=== PATIENT | female | born 1980 | race Caucasian/White ===

== ENCOUNTER 2018-05-30 11:16 | Emergency (ER) | payer BC, OTHER ==
[2018-05-30 12:08] LABS: ANION GAP 16.6; CHLORIDE,CL 102 mmol/L (101-111); SODIUM,NA 138 mmol/L (135-145)
--- NOTE | 2018-05-30 13:01 | US ---
Clinical history: 38-year-old female with stabbing" right upper quadrant pain and abnormally elevated serum amylase/lipase. Interpretation: Abnormal. Multiple discrete mobile dependent intraluminal echogenic "shadowing" small gallstones, RUQ. Gallbladder normal size and anatomic configuration with uniformly thin wall. No pericystic fluid. No mucosal wall polyps. Homogeneous normal sonodensity all the liver without sign discrete intrahepatic cystic or solid mass lesion. CBD 4.1 mm. Fractional visualization of the pancreas and recommend CT exam abdomen (abnormal enzymes). No ascites. CONCLUSION: Cholelithiasis. No abnormal ductal dilatation. Incomplete visualization pancreas (recommend CT).
[2018-05-30] MEDS ORDERED: Iopamidol 612 MG/ML 100 ML Bottle IVPUSH ONE ×2 (13:21→14:22)
--- NOTE | 2018-05-30 14:55 | CT ---
Clinical history: 38-year-old 278 pound female with "stabbing" RUQ pain. ("Cholelithiasis" documented at ultrasound but pancreas not adequately demonstrated or visualized) in this patient with abnormally elevated serum amylase (643) and lipase (>400). Scan technique: Volume acquisition of data from the abdomen and pelvis obtained without (IVC) and during intravenous infusion 100 cc nonionic Isovue contrast (3 cc/s via injector) while patient was lying supine on the Siemens multi slice CT scanner [place], [place]. All data archived in the PAC system for storage, reformatting axial/sagittal/coronal planes and study. Interpretation: Abnormal. 1.* Distended gallbladder with dependent noncalcified intraluminal gallstones (confirmed at ultrasound) and abnormally distended extrahepatic common bile duct (14 mm diameter) down to the antrum of moderate. 2. No current signs of pancreatic edema, major pancreatic duct dilatation, discrete intrahepatic stone (stone documented on ultrasound are not calcified) or cystic/solid pancreatic mass lesion. No peripancreatic inflammation ("dirty" fat) or phlegmon. 3. Liver normal size, anatomic configuration and homogeneous density. Normal stomach, spleen, adrenal glands and kidneys. 4. Normal caliber abdominal aorta. Lumbar spine unremarkable. Lung bases clear. 5. No sign of abdominal or pelvic mass lesion (normal midline uterus), inflammatory "dirty" peritoneal fat, signs of mechanical bowel obstruction, ascites or free intraperitoneal air (diverticula sigmoid colon). CONCLUSION: Cholelithiasis. *Abnormal dilatation common bile duct (14 mm) i.e. presumed stone impacted ampulla of Vater.
[2018-05-30] MEDS ORDERED: HYDROmorphone 1 MG/ML Syringe IVPUSH ONE (15:14)
[2018-05-30 16:34] VITALS: BP 108/67
--- NOTE | 2018-06-01 17:12 | EDM.PDOC ---
ED HPI GENERAL MEDICAL PROBLEM - General Chief Complaint: Abdominal Pain Stated Complaint: ABD PAINS [id number] Time Seen by Provider: 05/30/18 13:12 Source of Information: Reports: Patient, RN, RN Notes Reviewed History Limitations: Reports: No Limitations - History of Present Illness INITIAL COMMENTS - FREE TEXT/NARRATIVE: Patient presents to ER with complaint of pain in right upper quadrant. The pain is sharp which began on Thursday night. She has a history of gallstones. She had a baby 4 months ago. She has had nausea, decreased appetite and chills. No vomiting, fever or diarrhea. Onset Date: 05/28/18 Duration: Getting Worse Location: Reports: Abdomen Quality: Reports: Ache Severity: Moderate Improves with: Reports: None Worsens with: Reports: None Associated Symptoms: Reports: No Other Symptoms - Related Data Allergies Allergy/AdvReac Type Severity Reaction Status Date / Time No Known Allergies Allergy Verified 02/01/18 01:02 Home Meds: Home Meds Vit #108/Iron/FA [ One Tablet] 1 each PO DAILY 01/01/18 [ History] Acetaminophen [Tylenol] 650 mg PO Q4H PRN tablet 02/04/18 [Rx] Ibuprofen [Motrin] 800 mg PO Q8H PRN tablet 02/04/18 [Rx] Past Medical History - Past Health History Medical/Surgical History: Denies Medical/Surgical History HEENT History: Reports: None Cardiovascular History: Reports: None Respiratory History: Reports: None Gastrointestinal History: Reports: None Genitourinary History: Reports: None 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: , Spontaneous Musculoskeletal History: Reports: None Neurological History: Reports: None Psychiatric History: Reports: None Endocrine/Metabolic History: Reports: Obesity/BMI 30+ Hematologic History: Reports: Anemia Immunologic History: Reports: None Oncologic (Cancer) History: Reports: None Dermatologic History: Reports: None - Infectious Disease History Infectious Disease History: Reports: None - Past Surgical History Head Surgeries/Procedures: Reports: None Female Surgical History: Reports: D&C Social & Family History - Family History Family Medical History: Noncontributory - Tobacco Use Smoking Status *Q: Never Smoker - Caffeine Use Caffeine Use: Reports: None - Recreational Drug Use Recreational Drug Use: No ED ROS GENERAL - Review of Systems Review Of Systems: ROS reveals no pertinent complaints other than HPI. ED EXAM, GI/ABD - Physical Exam Exam: See Below Exam Limited By: No Limitations General Appearance: Alert, WD/WN, No Apparent Distress Eyes: Bilateral: Normal Appearance Ears: Normal External Exam, Normal Canal, Hearing Grossly Normal, Normal TMs Nose: Normal Inspection, Normal Mucosa, No Blood Throat/Mouth: Normal Inspection, Normal Lips, Normal Teeth, Normal Gums, Normal Oropharynx, Normal Voice, No Airway Compromise Head: Atraumatic, Normocephalic Neck: Normal Inspection, Supple, Non-Tender, Full Range of Motion Respiratory/Chest: No Respiratory Distress, Lungs Clear, Normal Breath Sounds, No Accessory Muscle Use, Chest Non-Tender Cardiovascular: Normal Peripheral Pulses, Regular Rate, Rhythm, No Edema, No Gallop, No JVD, No Murmur, No Rub GI/Abdominal Exam: Tender (right upper quadrant) (Female) Exam: Deferred Rectal (Female) Exam: Deferred Back Exam: Normal Inspection, Full Range of Motion, NT Extremities: Normal Inspection, Normal Range of Motion, Non-Tender, Normal Capillary Refill, No Pedal Edema Neurological: Alert, Oriented, CN II-XII Intact, Normal Cognition, Normal Gait, Normal Reflexes, No Motor/Sensory Deficits Psychiatric: Normal Affect, Normal Mood Skin Exam: Warm, Dry, Intact, Normal Color, No Rash Lymphatic: No Adenopathy Course - Vital Signs Last Recorded V/S: Last Vital Signs Temp 97.2 F 05/30/18 16:33 Pulse 87 05/30/18 16:33 Resp 18 05/30/18 16:33 BP 108/67 05/30/18 16:33 Pulse Ox 100 05/30/18 16:33 - Orders/Labs/Meds Labs: Laboratory Tests 05/30/18 05/30/18 05/30/18 Range/Units 11:28 11:28 11:35 WBC (5.0-10.0) 10^3/uL RBC (4.2-5.4) 10^6/uL Hgb (12.0-16.0) g/dL Hct (37.0-47.0) % MCV (80-100) fL MCH (27.0-34.0) pg MCHC (33.0-35.0) g/dL Plt Count (150-450) 10^3/uL Neut % (Auto) (42.2-75.2) % Lymph % (Auto) (20.5-50.1) % [place] % (Auto) (2-8) % Eos % (Auto) (1.0-3.0) % Baso % (Auto) (0.0-1.0) % Sodium 138 (135-145) mmol/L Potassium 3.6 (3.6-5.0) mmol/L Chloride 102 (101-111) mmol/L Carbon Dioxide 23.0 (21.0-31.0) mmol/L Anion Gap 16.6 BUN 13 (7-18) mg/dL Creatinine 0.7 (0.6-1.3) mg/dL Est Cr Clr Drug Dosing 103.01 mL/min Estimated GFR (MDRD) > 60 BUN/Creatinine Ratio 18.57 Glucose 83 (74-105) mg/dL Calcium 9.0 (8.4-10.2) mg/dl Total Bilirubin 2.6 H (0.2-1.0) mg/dL AST 376 H (10-42) IU/L ALT 277 H (10-60) IU/L Alkaline Phosphatase 137 H (42-121) IU/L Total Protein 8.1 (6.7-8.2) g/dl Albumin 4.2 (3.2-5.5) g/dl Globulin 3.9 Albumin/Globulin Ratio 1.08 Amylase 643 H (28-100) U/L Lipase > 400 H (22-51) U/L Urine Color Dark yellow (YELLOW) Urine Appearance Clear (CLEAR) Urine pH 5.5 (5.0-9.0) Ur Specific [place] 1.025 (1.005-1.030) Urine Protein 30 H (NEGATIVE) Urine Glucose (UA) Negative (NEGATIVE) Urine Ketones 40 H (NEGATIVE) Urine Occult Blood Negative (NEGATIVE) Urine Nitrite Negative (NEGATIVE) Urine Bilirubin Small H (NEGATIVE) Urine Urobilinogen 0.2 (0.2-1.0) mg/dL Ur Leukocyte Esterase Negative (NEGATIVE) Urine RBC 0-5 /HPF Urine WBC 0-5 (0-5/HPF) /HPF Ur Epithelial Cells Few /HPF Urine Bacteria Moderate H (0-FEW/HPF) /HPF Urine HCG, Qual Negative 05/30/18 Range/Units 11:35 WBC 7.3 (5.0-10.0) 10^3/uL RBC 4.97 (4.2-5.4) 10^6/uL Hgb 13.6 D (12.0-16.0) g/dL Hct 42.4 (37.0-47.0) % MCV 85.3 (80-100) fL MCH 27.4 (27.0-34.0) pg MCHC 32.1 L (33.0-35.0) g/dL Plt Count 347 D (150-450) 10^3/uL Neut % (Auto) 69.9 (42.2-75.2) % Lymph % (Auto) 21.5 (20.5-50.1) % [place] % (Auto) 5.7 (2-8) % Eos % (Auto) 2.6 (1.0-3.0) % Baso % (Auto) 0.3 (0.0-1.0) % Sodium (135-145) mmol/L Potassium (3.6-5.0) mmol/L Chloride (101-111) mmol/L Carbon Dioxide (21.0-31.0) mmol/L Anion Gap BUN (7-18) mg/dL Creatinine (0.6-1.3) mg/dL Est Cr Clr Drug Dosing mL/min Estimated GFR (MDRD) BUN/Creatinine Ratio Glucose (74-105) mg/dL Calcium (8.4-10.2) mg/dl Total Bilirubin (0.2-1.0) mg/dL AST (10-42) IU/L ALT (10-60) IU/L Alkaline Phosphatase (42-121) IU/L Total Protein (6.7-8.2) g/dl Albumin (3.2-5.5) g/dl Globulin Albumin/Globulin Ratio Amylase (28-100) U/L Lipase (22-51) U/L Urine Color (YELLOW) Urine Appearance (CLEAR) Urine pH (5.0-9.0) Ur Specific [place] (1.005-1.030) Urine Protein (NEGATIVE) Urine Glucose (UA) (NEGATIVE) Urine Ketones (NEGATIVE) Urine Occult Blood (NEGATIVE) Urine Nitrite (NEGATIVE) Urine Bilirubin (NEGATIVE) Urine Urobilinogen (0.2-1.0) mg/dL Ur Leukocyte Esterase (NEGATIVE) Urine RBC /HPF Urine WBC (0-5/HPF) /HPF Ur Epithelial Cells /HPF Urine Bacteria (0-FEW/HPF) /HPF Urine HCG, Qual Meds: Medications Discontinued Medications Generic Name Dose Route Start Last Admin Trade Name Brannon PRN Reason Stop Dose Admin Hydromorphone HCl 1 mg 05/30/18 15:14 05/30/18 15:21 Dilaudid IVPUSH 05/30/18 15:15 1 mg ONETIME ONE Administration Iopamidol 100 ml 05/30/18 13:21 05/30/18 13:29 Isovue-300 (61%) IVPUSH 05/30/18 13:22 Not Given ONETIME ONE Iopamidol 100 ml 05/30/18 14:22 05/30/18 14:37 Isovue-300 (61%) IVPUSH 05/30/18 14:23 75 ml ONETIME ONE Administration - Radiology Interpretation Free Text/Narrative:: CT Abdomen/Pelvis with contrast: Cholelithiasis *Abnormal dilatation common bile duct (14mm) i.e. presumed stone impacted ampulla of Vater Abdomen US: Cholelithiasis. No abnormal ductal dilatation. Incomplete visualization pancreas (recommend CT) See rad report - Re-Assessments/Exams Free Text/Narrative Re-Assessment/Exam: 06/02/18 07:15 Discussed patient case with Dr. Wright at [facility] who states they could accept the patient but she may need to be transferred from there as well, due to no capability of ERCP. Then discussed the patient with Dr. Fulton at [facility] who agreed to accept the patient. Due to weather, hospitalists would not accept the patient if she came by private vehicle, but if she came by ambulance they would accept her. Patient agreed to be transferred to [place] per ambulance. Dr. Levin agreed to accept the patient at this time. Departure - Departure Time of Disposition: 17:16 Disposition: DC/Tfer to Acute Hospital 02 Condition: Fair Clinical Impression: Cholelithiasis Qualifiers: Cholelithiasis location: bile duct Cholecystitis presence: without cholecystitis Biliary obstruction: with biliary obstruction Qualified Code(s): K80.51 - Calculus of bile duct without cholangitis or cholecystitis with obstruction - Discharge Information *PRESCRIPTION DRUG MONITORING PROGRAM REVIEWED*: No *COPY OF PRESCRIPTION DRUG MONITORING REPORT IN PATIENT SHILO: No Referrals: Maria Luz Shirley MD [Primary Care Provider] - Forms: ED Department Discharge, Interfacility Transfer [facility]
== END 2018-05-30 17:14 ==
LOC: DL.ED 11:16
DX: K80.51 Calculus of bile duct without cholangitis or cholecystitis with obstruction (principal)
CPT/HCPCS: 36415; 74178; 76705; 80053; 81001; 81025; 82150; 83690; 85025; 96374; 99285; J1170; Q9967

== ENCOUNTER 2019-03-18 17:59 | Emergency (ER) | payer BC ==
[2019-03-18 18:09] VITALS: BP 126/93; PULSE 119
[2019-03-18 18:53] LABS: ANION GAP 11.9; CHLORIDE,CL 105 mmol/L (101-111); SODIUM,NA 137 mmol/L (135-145)
--- NOTE | 2019-03-18 18:53 | EDM.PDOC ---
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 the today developed left chest area pain just under the skin of her left breast that comes-goes. denies hurting when pushed on it or takes deep breath. no rash. Left Upper Chest Pain Score (Numeric/FACES): 3 - Related Data Allergies Allergy/AdvReac Type Severity Reaction Status Date / Time No Known Allergies Allergy Verified 03/18/19 18:09 Home Meds: Home Meds Mv-Mn/Iron/FA/Herbal/Digestive [ One Tablet] 1 each PO DAILY 01/01/18 [ History] Omeprazole 40 mg PO DAILY 03/18/19 [History] buPROPion HCl [Bupropion Xl] 150 mg PO DAILY 03/18/19 [History] Past Medical History - Past Health History Medical/Surgical History: Denies Medical/Surgical History HEENT History: Reports: None Cardiovascular History: Reports: None Respiratory History: Reports: None Gastrointestinal History: Reports: None Genitourinary History: Reports: None 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: , Spontaneous Musculoskeletal History: Reports: Fracture Neurological History: Reports: None Psychiatric History: Reports: None Endocrine/Metabolic History: Reports: Obesity/BMI 30+ Hematologic History: Reports: Anemia Immunologic History: Reports: None Oncologic (Cancer) History: Reports: None Dermatologic History: Reports: None - Infectious Disease History Infectious Disease History: Reports: None - Past Surgical History Head Surgeries/Procedures: Reports: None GI Surgical History: Reports: Cholecystectomy Female Surgical History: Reports: D&C Musculoskeletal Surgical History: Reports: Other (See Below) Other Musculoskeletal Surgeries/Procedures:: right foot surgery (open reduction) Social & Family History - Family History Family Medical History: Noncontributory - Tobacco Use Smoking Status *Q: Former Smoker Used Tobacco, but Quit: Yes Month/Year Tobacco Last Used: 2018 - Caffeine Use Caffeine Use: Reports: None - Recreational Drug Use Recreational Drug Use: No ED ROS GENERAL - Review of Systems Review Of Systems: Comprehensive ROS is negative, except as noted in HPI. ED EXAM, GENERAL - Physical Exam Exam: See Below Exam Limited By: No Limitations General Appearance: Alert, WD/WN, Mild Distress, Other (upset) Ears: Hearing Grossly Normal Throat/Mouth: Normal Voice, No Airway Compromise Head: Atraumatic Neck: Non-Tender, Full Range of Motion Respiratory/Chest: No Respiratory Distress, Lungs Clear, Normal Breath Sounds, Chest Non-Tender Cardiovascular: Regular Rate, Rhythm GI/Abdominal: Soft, Non-Tender Neurological: Alert, Oriented, Normal Cognition, Normal Gait, No Motor/Sensory Deficits Psychiatric: Normal Affect, Normal Mood Skin Exam: Warm, Dry, Normal Color, Other. No: Zoster-Like Rash Lymphatic: No Adenopathy Course - Vital Signs Last Recorded V/S: Last Vital Signs Temp 36.3 C 03/18/19 18:05 Pulse 119 H 03/18/19 18:05 Resp 18 03/18/19 18:05 BP 126/93 H 03/18/19 18:05 Pulse Ox 94 L 03/18/19 18:05 - Orders/Labs/Meds Orders: Active Orders 24 hr Category Date Time Status EKG Documentation Completion [RC] URGENT Care 03/18/19 18:18 Active Labs: Laboratory Tests 03/18/19 03/18/19 03/18/19 Range/Units 18:25 18:25 18:25 WBC 7.6 (5.0-10.0) 10^3/uL RBC 4.44 (4.2-5.4) 10^6/uL Hgb 12.1 D (12.0-16.0) g/dL Hct 37.3 (37.0-47.0) % MCV 84.0 (80-100) fL MCH 27.3 (27.0-34.0) pg MCHC 32.4 L (33.0-35.0) g/dL Plt Count 312 (150-450) 10^3/uL Neut % (Auto) 64.3 (42.2-75.2) % Lymph % (Auto) 26.5 (20.5-50.1) % [place] % (Auto) 4.6 (2-8) % Eos % (Auto) 4.2 H (1.0-3.0) % Baso % (Auto) 0.4 (0.0-1.0) % D-Dimer, Quantitative 635 H (0-400) ng/mL Sodium 137 (135-145) mmol/L Potassium 3.9 (3.6-5.0) mmol/L Chloride 105 (101-111) mmol/L Carbon Dioxide 24.0 (21.0-31.0) mmol/L Anion Gap 11.9 BUN 17 (7-18) mg/dL Creatinine 0.8 (0.6-1.3) mg/dL Est Cr Clr Drug Dosing 90.13 mL/min Estimated GFR (MDRD) > 60 BUN/Creatinine Ratio 21.25 Glucose 102 (74-105) mg/dL Calcium 8.7 (8.4-10.2) mg/dl Total Bilirubin 0.6 (0.2-1.0) mg/dL AST 28 (10-42) IU/L ALT 35 (10-60) IU/L Alkaline Phosphatase 56 (42-121) IU/L Troponin I < 0.02 (0.00-0.02) ng/ml B-Natriuretic Peptide (0-100) pg/ml Total Protein 7.0 (6.7-8.2) g/dl Albumin 3.9 (3.2-5.5) g/dl Globulin 3.1 Albumin/Globulin Ratio 1.26 12/13/19 Range/Units 18:25 WBC (5.0-10.0) 10^3/uL RBC (4.2-5.4) 10^6/uL Hgb (12.0-16.0) g/dL Hct (37.0-47.0) % MCV (80-100) fL MCH (27.0-34.0) pg MCHC (33.0-35.0) g/dL Plt Count (150-450) 10^3/uL Neut % (Auto) (42.2-75.2) % Lymph % (Auto) (20.5-50.1) % [place] % (Auto) (2-8) % Eos % (Auto) (1.0-3.0) % Baso % (Auto) (0.0-1.0) % D-Dimer, Quantitative (0-400) ng/mL Sodium (135-145) mmol/L Potassium (3.6-5.0) mmol/L Chloride (101-111) mmol/L Carbon Dioxide (21.0-31.0) mmol/L Anion Gap BUN (7-18) mg/dL Creatinine (0.6-1.3) mg/dL Est Cr Clr Drug Dosing mL/min Estimated GFR (MDRD) BUN/Creatinine Ratio Glucose (74-105) mg/dL Calcium (8.4-10.2) mg/dl Total Bilirubin (0.2-1.0) mg/dL AST (10-42) IU/L ALT (10-60) IU/L Alkaline Phosphatase (42-121) IU/L Troponin I (0.00-0.02) ng/ml B-Natriuretic Peptide 742 H (0-100) pg/ml Total Protein (6.7-8.2) g/dl Albumin (3.2-5.5) g/dl Globulin Albumin/Globulin Ratio Meds: Medications Discontinued Medications Generic Name Dose Route Start Last Admin Trade Name Freq PRN Reason Stop Dose Admin Iopamidol 100 ml 03/18/19 19:11 03/18/19 19:46 Isovue-370 (76%) IVPUSH 03/18/19 19:12 83 ml ONETIME ONE Administration Lorazepam 1 mg 03/18/19 20:59 Ativan IVPUSH 03/18/19 21:00 ONETIME ONE - Re-Assessments/Exams Free Text/Narrative Re-Assessment/Exam: 03/18/19 21:05 results discussed with pt and case discussed with Dr Roth who kindly accepted pt. Departure - Departure Time of Disposition: 21:06 Disposition: DC/Tfer to Acute Hospital 02 Reason for Transfer *Q: Other Condition: Good Clinical Impression: Pulmonary edema cardiac cause Cardiomyopathy Qualifiers: Cardiomyopathy type: unspecified Qualified Code(s): I42.9 - Cardiomyopathy, unspecified Forms: Interfacility Transfer [facility] Sepsis Event Note - Evaluation Sepsis Screening Result: No Definite Risk - Focused Exam Vital Signs: Vital Signs Temp Pulse Resp BP Pulse Ox 03/18/19 18:05 36.3 C 119 H 18 126/93 H 94 L Date Exam was Performed: 03/18/19 Time Exam was Performed: 21:05
[2019-03-18] MEDS ORDERED: Iopamidol 755 Mg/ML 100 ML Bottle IVPUSH ONE (19:11)
[2019-03-18] MEDS ORDERED: LORazepam 2 MG/ML Syringe IVPUSH ONE (20:59)
== END 2019-03-18 21:29 ==
LOC: DL.ED 17:59
DX: J81.1 Chronic pulmonary edema (principal); I42.9 Cardiomyopathy, unspecified; E66.9 Obesity, unspecified; Z68.43 Body mass index [BMI] 50.0-59.9, adult; Z87.891 Personal history of nicotine dependence
CPT/HCPCS: 36415; 71045; 71260; 80053; 83880; 84484; 85025; 85379; 93005; 96374; 99285; J2060; Q9967